=== PATIENT | female | born 1965 | race Caucasian/White ===

== ENCOUNTER → 2024-01-29 | Outpatient (REF) | payer OTHER, SELFPAY | LOC: DHSLP | PROVIDERS: ATTENDING PHYSICIAN Internal Medicine; FAMILY PHYSICIAN Internal Medicine | DX: G47.33 Obstructive sleep apnea (adult) (pediatric) (principal) | CPT/HCPCS: 95800 ==

== ENCOUNTER → 2024-02-22 15:03 | Outpatient (REF) | payer OTHER, SELFPAY | LOC: MRI 3T 15:03 | PROVIDERS: ATTENDING PHYSICIAN Nurse Practitioner; FAMILY PHYSICIAN Internal Medicine | DX: R31.0 Gross hematuria (principal) | CPT/HCPCS: 74183; A9575 ==

== ENCOUNTER → 2024-02-25 14:30 | Outpatient (REF) | payer OTHER, SELFPAY | LOC: MRI 3T 14:30 | PROVIDERS: ATTENDING PHYSICIAN Nurse Practitioner; FAMILY PHYSICIAN Internal Medicine | DX: R31.0 Gross hematuria (principal) | CPT/HCPCS: 72197; A9575 ==

== ENCOUNTER 2024-06-20 11:33 | Emergency (ER) | payer OTHER, SELFPAY ==
[2024-06-20 11:38] VITALS: BP 180/109
[2024-06-20 12:36] LABS: % Basophils 0.3 % (0-2); % Eosinophils 0.3 % (0-6); % Immature Granulocytes 0.4 % (0-0.5); % Lymphocytes 13.4 % (20.5-51.1); % Neutrophils 80.6 % (42.2-75.2); Absolute Immature Granulocytes 0.1 10^3/uL (0-0.05); Absolute Lymphocytes 1.6 10^3/uL (1.2-3.4); Absolute Monocytes 0.6 10^3/uL (0.1-0.6); Absolute Neutrophils 9.4 10^3/uL (1.4-6.5); Hemoglobin 13.5 g/dL (12.0-16.0); Mean Corp Hgb Conc. 33.8 g/dL (33.0-37.0); Mean Corpuscular Hgb 28.7 pg (27.0-31.0); Mean Corpuscular Volume 84.9 fL (81.0-99.0); Mean Platelet Volume 10.5 fL (7.4-10.4); Nucleated Red Blood Cells % 0 %; Platelet Count 230 10^3/uL (130-400); Red Blood Cell Count 4.71 10^6/uL (4.20-5.40); Red Cell Dist. Width 13.9 % (11.5-14.5); White Blood Cell Count 11.6 10^3/uL (4.8-10.8)
[2024-06-20 12:54] LABS: ALT (SGPT) 19 U/L (0-35); AST (SGOT) 28 U/L (14-36); Albumin 4.3 g/dl (3.5-5.0); Alkaline Phosphatase 114 U/L (38-126); Blood Urea Nitrogen 11 mg/dl (7-17); Calcium 9.7 mg/dl (8.4-10.2); Carbon Dioxide 26 mmol/L (22-30); Chloride 105 mmol/L (98-107); Glucose 116 mg/dl (70-99); Potassium 4.1 mmol/L (3.5-5.1); Sodium 137 mmol/L (135-145); Total Bilirubin 0.6 mg/dl (0.2-1.3); Total Protein 7.9 g/dl (6.3-8.2); eGFR > 60.00
--- NOTE | 2024-06-20 13:08 | ED.GENMED ---
History of Present Illness
General
Chief Complaint: Abdominal Pain
Time Seen by Provider: 06/20/24 12:21
History of Present Illness
History of Present Illness:
59-year-old female presents to the emergency department for evaluation of upper abdominal pain radiating to the right upper quadrant beginning last night. Associated with some nausea, vomiting, and constipation. States she has had this pain in the
past associated with indigestion but the pain is much worse. No history of intra-abdominal surgeries. No fevers chills or sweats.
Past History
Past History
ED Past Medical History: Hypercholesterolemia
ED Past Surgical History: Other (Noncontributory)
Social History
Tobacco: Non-smoker
Alcohol: Occasional
Drug: None
Personal:
Living: with family
Employment: Employed
Family History
Family History: Diabetes and CAD
Review of Systems
Review of Systems
Allergies reviewed?: Yes
All Other Systems: ROS reviewed and negative except as documented in HPI and ROS
Phy Exam
Physical Exam
Physical Exam:
GEN: Well appearing, NAD, WDWN
HEENT: Oral mucosa moist, no scleral icterus
Cardiac: Regular rate
Lung: No respiratory distress, no tachypnea
Abdomen: Soft, mildly tender to the epigastrium and right upper quadrant, negative Cardenas sign
MSK: No gross deformity or injuries
Skin: Good color, no pallor or jaundice, no rashes
Neuro: AO x3, moves all extremities freely
Psych: Calm, cooperative
Course
Orders/Labs/Results
Orders:
Orders
06/20/24 11:47
EKG [Electrocardiogram (*1)] Urgent
Reason for Study: Abdominal Pain
EKG- Treatment ONCE
06/20/24 12:21
Complete Blood Count/With Diff Urgent
Comprehensive Metabolic Panel Urgent
Lipase Urgent
Comment: ADDON
06/20/24 12:28
Add On- LAB Urgent
Tests Added?: lipase
06/20/24 13:02
US Abdomen Complete/Upper Urgent
Comment:
Reason For Exam: epigastric pain
Abnormal Lab Results
06/20/24
12:21
WBC 11.6 H 10^3/uL
(4.8-10.8)
MPV 10.5 H fL
(7.4-10.4)
Abs Immat Gran (auto) 0.1 H 10^3/uL
(0-0.05)
Absolute Neuts (auto) 9.4 H 10^3/uL
(1.4-6.5)
Neutrophils % 80.6 H %
(42.2-75.2)
Lymphocytes % 13.4 L %
(20.5-51.1)
Glucose 116 H mg/dl
(70-99)
06/20/24 12:21
06/20/24 12:21
Vital Signs
Initial and Last Documented VS:
Initial Vital Signs
Temp Pulse Resp BP Pulse Ox
99.1 F 91 16 180/109 97
06/20/24 11:38 06/20/24 11:38 06/20/24 11:38 06/20/24 11:38 06/20/24 11:38
Last Documented Vital Signs
Temp Pulse Resp BP Pulse Ox
98.6 F 78 18 123/102 97
06/20/24 14:03 06/20/24 14:03 06/20/24 14:03 06/20/24 14:03 06/20/24 14:03
MDM/Problems Addressed
MDM/Problems Addressed:
Imaging shows no evidence for cholecystitis however cholelithiasis is identified. Will recommend outpatient general surgical follow-up, low-fat diet advised
*Critical Care Note
Total Time (30-74mins, 75-104mins- exclusive of procedures): Not Applicable
ED Attending Note
-
Portions of this chart may have been created with voice recognition software.� Occasional wrong word or��sound alike� substitutions may have occurred due to the inherent limitations of voice recognition software.
Discharge Plan
Departure
Patient Disposition: Home (Routine Discharge)
Date of Disposition: 06/20/24
Time of Disposition: 14:16
Patient with high blood pressure during this ER visit?: No
Discharge Problem:
Cholelithiasis
Instructions: Gallstones (DC), Low-fat diet
Prescriptions:
No Action
fish oil-dha-epa 1 EACH capsule
1,000 mg PO DAILY
cholecalciferol (vitamin D3) [Vitamin D3] 1,000 UNIT tablet
4,000 PO DAILY
acetaminophen [Tylenol Extra Strength] 500 MG tablet
1,000 mg PO Q6HPRN PRN (Reason: pain)
zinc amino acid chelate 50 MG tablet
50 mg PO DAILY
ascorbic acid (vitamin C) [Vitamin C] 500 MG tablet
500 mg PO DAILY
L.acidoph, paracasei,B. lactis 1 EACH capsule
1 ea PO DAILY
lisinopril 10 MG tablet
10 mg PO DAILY
Coq10
100 mg PO DAILY
atorvastatin 20 MG tablet
20 mg PO DAILY
Albuterol Sulfate
2 puff PO DAILY PRN (Reason: sob)
Aspirin :
81 mg PO DAILY
omeprazole 20 MG capsule,delayed release(DR/EC)
20 mg PO DAILY
Referrals:
Jeff Cantu MD [Active] - Call in 1-3 days for appt
Carolyn Poole MD [Family Provider] -
Interventions
Interventions:
*Risk Screen - Suicide Last Done: 06/20/24 11:41
*General Assessment Last Done: 06/20/24 11:41
*Neglect/Abuse Screening Last Done: 06/20/24 11:41
*Nursing Disposition Last Done: 06/20/24 14:42
AH-[id number] Assessment Last Done: 06/20/24 12:21
Discharge Date and Time
Discharge Date/Time: 06/20/24 14:42
Print Language: PERSIAN
[2024-06-20 14:03] VITALS: BP 123/102
[2024-06-20 14:28] LABS: Lipase 146 U/L (23-300)
== END 2024-06-20 14:42 | disposition home or self-care (01) ==
LOC: EMR 11:33
PROVIDERS: EMERGENCY PHYSICIAN Emergency Medicine; FAMILY PHYSICIAN Internal Medicine
DX: K80.20 Calculus of gallbladder without cholecystitis without obstruction (principal); K59.00 Constipation, unspecified; R11.2 Nausea with vomiting, unspecified; E78.00 Pure hypercholesterolemia, unspecified; Z79.82 Long term (current) use of aspirin; Z88.8 Allergy status to other drugs, medicaments and biological substances
CPT/HCPCS: 99284; 76700; 80053; 83690; 85025; 93005

== ENCOUNTER 2024-08-01 06:06 | Day surgery (SDC) | payer OTHER, SELFPAY ==
[2024-08-01] MEDS: TYLENOL 1000 MG PO (06:41)
[2024-08-01] MEDS: NORMOSOL-R/PLASMALYTE-A 1000 IV (07:05)
== END 2024-08-01 11:20 | disposition home or self-care (01) ==
LOC: SDS 06:06
PROVIDERS: ATTENDING PHYSICIAN Surgery; FAMILY PHYSICIAN Internal Medicine
DX: K80.10 Calculus of gallbladder with chronic cholecystitis without obstruction (principal); E66.01 Morbid (severe) obesity due to excess calories; K66.0 Peritoneal adhesions (postprocedural) (postinfection); Z68.37 Body mass index [BMI] 37.0-37.9, adult
CPT/HCPCS: 47563; 88304; 74300; 76000; A4300

== ENCOUNTER → 2024-08-20 15:49 | Outpatient (REF) | payer OTHER, SELFPAY | LOC: HWRAD 15:49 | PROVIDERS: ATTENDING PHYSICIAN Internal Medicine | DX: Z87.891 Personal history of nicotine dependence (principal) | CPT/HCPCS: 71271 ==

== ENCOUNTER → 2024-11-20 15:52 | Outpatient (REF) | payer OTHER, SELFPAY | LOC: WDC 15:52 | PROVIDERS: ATTENDING PHYSICIAN Internal Medicine | DX: R91.8 Other nonspecific abnormal finding of lung field (principal); Z12.31 Encounter for screening mammogram for malignant neoplasm of breast | CPT/HCPCS: 71250; 77063; 77067 ==

== ENCOUNTER → 2024-11-26 09:47 | Outpatient (REF) | payer OTHER, SELFPAY | LOC: WDC 09:47 | PROVIDERS: ATTENDING PHYSICIAN Internal Medicine | DX: R92.8 Other abnormal and inconclusive findings on diagnostic imaging of breast (principal) | CPT/HCPCS: 76642 ==

== ENCOUNTER 2024-12-04 06:14 | Emergency (ER) | payer OTHER, SELFPAY ==
[2024-12-04 06:16] VITALS: BP 184/106
[2024-12-04 06:27] LABS: Glucose - Point of Care 156 mg/dl (70-99)
[2024-12-04 06:57] LABS: % Basophils 0.4 % (0-2); % Eosinophils 2.4 % (0-6); % Immature Granulocytes 0.6 % (0-0.5); % Monocytes 4.5 % (1.7-9.3); % Neutrophils 69.1 % (42.2-75.2); Absolute Eosinophils 0.1 10^3/uL (0-0.7); Absolute Lymphocytes 1.2 10^3/uL (1.2-3.4); Absolute Monocytes 0.2 10^3/uL (0.1-0.6); Absolute Neutrophils 3.7 10^3/uL (1.4-6.5); Hematocrit 38.4 % (37.0-47.0); Hemoglobin 12.5 g/dL (12.0-16.0); Mean Corp Hgb Conc. 32.6 g/dL (33.0-37.0); Mean Corpuscular Hgb 27.9 pg (27.0-31.0); Mean Corpuscular Volume 85.7 fL (81.0-99.0); Mean Platelet Volume 10.6 fL (7.4-10.4); Nucleated Red Blood Cells % 0 %; Platelet Count 194 10^3/uL (130-400); Red Blood Cell Count 4.48 10^6/uL (4.20-5.40); Red Cell Dist. Width 13.7 % (11.5-14.5); White Blood Cell Count 5.4 10^3/uL (4.8-10.8)
[2024-12-04 07:09] LABS: ALT (SGPT) 20 U/L (0-35); AST (SGOT) 28 U/L (14-36); Albumin 4.2 g/dl (3.5-5.0); Alkaline Phosphatase 111 U/L (38-126); Blood Urea Nitrogen 19 mg/dl (7-17); Calcium 8.8 mg/dl (8.4-10.2); Carbon Dioxide 25 mmol/L (22-30); Chloride 105 mmol/L (98-107); Glucose 136 mg/dl (70-99); Potassium 4.5 mmol/L (3.5-5.1); Sodium 138 mmol/L (135-145); Total Bilirubin 0.5 mg/dl (0.2-1.3); Total Protein 7.8 g/dl (6.3-8.2); eGFR > 60.00
[2024-12-04 07:11] VITALS: BP 157/87
[2024-12-04 07:19] LABS: Troponin I 0.019 ng/ml
[2024-12-04] MEDS: LOW STRENGTH ASPIRIN 324 MG PO (07:34)
[2024-12-04 07:37] VITALS: BMI 39.5
--- NOTE | 2024-12-04 07:41 | ED.GENMED ---
History of Present Illness
<Carmita Nicolas PA-C - Last Filed: 12/04/24 14:57>
General
Chief Complaint: Blood Pressure Problem
Source: patient
Exam Limitations: none
Time Seen by Provider: 12/04/24 07:07
Nursing documentation reviewed up to this point in time: agreed with
History of Present Illness
History of Present Illness:
59 y/o F with h/o HTN, hld, sleep apnea, former smokker
here with sxs that began around 3 am
woke up because c pap was bothering her
she started feeling room spinning dizziness and some blurry vision last ing about 20 sec
she sat up and it clearedup but that prompted her to check bp which was 179/109
she took her morning dose of lisinopril (usually takes it at 5 am)
and then waited a little and started feeling better
took a shower and came back to bed, no trouble walking
checked bp and it was 180/100
she decided to come in
on the way here started having L upper back 'burning' discomfort, mild
and then while in the waiting room the burning presented in the front of the chest
not pleuritic
no cp awith exertion
no diaphoresis, nausea, vomiting, syncope, leg swelling neck pain, headache
had carotid US in 2022 which was clear
Past History
<Carmita Nicolas PA-C - Last Filed: 12/04/24 14:57>
Past History
ED Past Medical History: Hypercholesterolemia
ED Past Surgical History: Other (Noncontributory)
Social History
Tobacco: Non-smoker
Alcohol: Occasional
Drug: None
Personal:
Living: with family
Employment: Employed
Family History
Family History: Diabetes and CAD
Review of Systems
<JASPREET Bassett Last Filed: 12/04/24 14:57>
Review of Systems
Allergies reviewed?: Yes
All Other Systems: Not applicable
Phy Exam
<Carmita Nicolas PA-C - Last Filed: 12/04/24 14:57>
Physical Exam
Physical Exam:
GENERAL: Alert , in no apparent distress
EYE: pupils equal and reactive
NECK: Supple
ENT: o/p clr, mmm.
CARDIAC: Regular rate and rhythm .
LUNGS: Clear breath sounds bilaterally, no acute respiratory distress, no wheezes/rales/rhonchi
ABDOMEN: Soft, without focal tenderness, no r/g, no cvat, normal bowel sounds
NEUROLOGICAL: Alert and oriented, no focal neuro deficits
SKIN: Warm and dry, skin intact.
MUSCULOSKELETAL: No edema, well perfused. neg myrna's sign
PSYCH: Normal and appropriate interaction.
Scores
<Carmita Nicolas PA-C - Last Filed: 12/04/24 14:57>
PE Wells Score
Symptoms of DVT: No
No alternative diagnosis better explains the illness: No
Tachycardia with pulse > 100: No
Immobilization (>=3 days) or surgery within previous 4 weeks: No
Prior history of DVT or pulmonary embolism: No
Presence of hemoptysis: No
Presence of malignancy: No
Pulmonary Embolism Risk Score: 0
Probability of PE: Pt is low risk
PERC Rule Criteria
Age <50 years: No
HR <100 bpm: Yes
Room air oxygen sat >94%: Yes
History of DVT or PE: No
Recent trauma or surgery: No
Hemoptysis: No
Exogenous estrogen: No
Clinical signs suggestive of DVT: No
: No
Considered low risk for PE: Yes
PERC Score: 1
PE can be excluded by PERC: No
Course
<Carmita Nicolas PA-C - Last Filed: 12/04/24 14:57>
Orders/Labs/Results
Orders:
Orders
12/04/24 06:22
EKG [Electrocardiogram (*1)] Urgent
Reason for Study: Hypertension, Benign
EKG- Treatment ONCE
12/04/24 06:25
Accucheck [Bedside Glucose Monitoring] As Directed
Frequency: Other frequency
Other frequency: once
12/04/24 06:44
Complete Blood Count/With Diff Urgent
Comprehensive Metabolic Panel Urgent
NT-proBNP Urgent
Comment: ADD ON
Troponin I Urgent
12/04/24 07:22
Add On- LAB Urgent
Tests Added?: BNP
CR Chest - 2 Views Urgent
Comment:
Reason For Exam: chest pain
12/04/24 07:23
EKG- Treatment ONCE
Aspirin Chewable [Low Strength Aspirin] 324 mg PO NOW STA
12/04/24 07:36
Mag Hydrox/Al Hydrox/Simeth [Maalox] 30 ml PO NOW STA
12/04/24 10:00
Electrocardiogram (*1) Urgent
Reason for Study: Chest Pain
12/04/24 10:36
Troponin I Urgent
Abnormal Lab Results
12/04/24 12/04/24
06:26 06:44
MCHC 32.6 L g/dL
(33.0-37.0)
MPV 10.6 H fL
(7.4-10.4)
Immature Gran % 0.6 H %
(0-0.5)
BUN 19 H mg/dl
(7-17)
Glucose 136 H mg/dl
(70-99)
POC Glucose 156 H mg/dl
(70-99)
12/04/24 06:44
12/04/24 06:44
Vital Signs
Initial and Last Documented VS:
Initial Vital Signs
Temp Pulse Resp BP Pulse Ox
36.7 C 92 18 184/106 100
12/04/24 06:16 12/04/24 06:16 12/04/24 06:16 12/04/24 06:16 12/04/24 06:16
Last Documented Vital Signs
Temp Pulse Resp BP Pulse Ox
36.7 C 66 14 137/98 97
12/04/24 06:16 12/04/24 11:45 12/04/24 11:45 12/04/24 10:00 12/04/24 11:30
<Daniel Gonsalves, DO - Last Filed: 12/04/24 11:11>
Orders/Labs/Results
Orders:
Orders
12/04/24 06:22
EKG [Electrocardiogram (*1)] Urgent
Reason for Study: Hypertension, Benign
EKG- Treatment ONCE
12/04/24 06:25
Accucheck [Bedside Glucose Monitoring] As Directed
Frequency: Other frequency
Other frequency: once
12/04/24 06:44
Complete Blood Count/With Diff Urgent
Comprehensive Metabolic Panel Urgent
NT-proBNP Urgent
Comment: ADD ON
Troponin I Urgent
12/04/24 07:22
Add On- LAB Urgent
Tests Added?: BNP
CR Chest - 2 Views Urgent
Comment:
Reason For Exam: chest pain
12/04/24 07:23
EKG- Treatment ONCE
Aspirin Chewable [Low Strength Aspirin] 324 mg PO NOW STA
12/04/24 07:36
Mag Hydrox/Al Hydrox/Simeth [Maalox] 30 ml PO NOW STA
12/04/24 10:00
Electrocardiogram (*1) Urgent
Reason for Study: Chest Pain
12/04/24 10:36
Troponin I Urgent
Abnormal Lab Results
12/04/24 12/04/24
06:26 06:44
MCHC 32.6 L g/dL
(33.0-37.0)
MPV 10.6 H fL
(7.4-10.4)
Immature Gran % 0.6 H %
(0-0.5)
BUN 19 H mg/dl
(7-17)
Glucose 136 H mg/dl
(70-99)
POC Glucose 156 H mg/dl
(70-99)
12/04/24 06:44
12/04/24 06:44
Vital Signs
Initial and Last Documented VS:
Initial Vital Signs
Temp Pulse Resp BP Pulse Ox
36.7 C 92 18 184/106 100
12/04/24 06:16 12/04/24 06:16 12/04/24 06:16 12/04/24 06:16 12/04/24 06:16
Last Documented Vital Signs
Temp Pulse Resp BP Pulse Ox
36.7 C 66 14 137/98 97
12/04/24 06:16 12/04/24 11:45 12/04/24 11:45 12/04/24 10:00 12/04/24 11:30
Jackielt;Carmita Nicolas PA-C - Last Filed: 12/04/24 14:57>
MDM/Problems Addressed
Differential Diagnosis Includes:
symptatomci htn, acs, vertigo, near syncope, chf
MDM/Problems Addressed:
pt is a 59 y/o F with h/o HTN ,HLD
felt lightheaded/dizzy visino changes briefly at 3 am
checked bp and it was 180/100
normally 120/80
took her lisinopril, still had some hypertnesion but started to feel better
took a shower and then noticed some pain in her upper back that felt like burning
no syncope, sob, fever, cough, headache, neckpain
vision changes are resolved
dizziness is not really present
she had URI last week and cleared up
ekg t wave inv [id number] neg
initially bp elevated 180/100
but improved nicely without meds
first trop 0.019
observed in ED
cxr indep reviewed, clear
bnp nomral
2nd trop < 0.012
seen by ed attending
agree with dispo
very low risk for PE and no sob/tachycardia
return precautions
will put in chest pain hot line;
<Carmita Nicolas PA-C - Last Filed: 12/04/24 14:57>
*Critical Care Note
Total Time (30-74mins, 75-104mins- exclusive of procedures): Not Applicable
ED Attending Note
<Carmita Nicolas PA-C - Last Filed: 12/04/24 14:57>
-
Portions of this chart may have been created with voice recognition software.� Occasional wrong word or��sound alike� substitutions may have occurred due to the inherent limitations of voice recognition software.
<aDniel Gonsalves DO - Last Filed: 12/04/24 11:11>
ED Attending Note
Patient seen and examined by attending physician: Yes
I performed the substantive portion of visit, reviewed & personally made and approve the management plan that is documented in note by myself or SHWETHA.: Yes
ED Attending Note:
I evaluated the patient at bedside. Initial troponin EKG relatively unremarkable. The initial EKG showed a questionable abnormality in V2 however given the QRS, this does not appear to be anything significant. Repeat EKG shows upright T waves in
V2. She has not had any chest discomfort other than some burning earlier this morning. BP has spontaneously improved. She did take her lisinopril around 330 this morning.
Discharge Plan
Departure
Patient Disposition: Home (Routine Discharge)
Date of Disposition: 12/04/24
Time of Disposition: 11:41
Patient with high blood pressure during this ER visit?: No
Condition: Fair
Covid-19: Not Applicable
Discharge Problem:
Transient hypertension, Dizziness, Chest pain
Instructions: High Blood Pressure (DC), Chest Pain DCA Follow Up
Prescriptions:
New
meclizine 25 mg tablet
25 mg PO BID PRN (Reason: dizziness) Qty: 10 0RF
No Action
lisinopril 10 MG tablet
10 mg PO DAILY
famotidine 40 mg Tablet
40 mg PO HS
omeprazole 40 mg Capsule,Delayed Release(Dr/Ec)
40 mg PO DAILY
naproxen sodium [Aleve] 220 mg Tablet
220 - 440 mg PO PRN PRN (Reason: pain)
estradiol 0.01 % (0.1 mg/gram) Cream
1 appful VAGINAL MOTH
albuterol sulfate 90 mcg/actuation Hfa Aerosol Inhaler
1 inh inhalation ONCE PRN (Reason: SOB)
magnesium 200 mg Tablet
200 mg PO HS
rosuvastatin 10 mg Tablet
10 mg PO HS
acetaminophen [acetaminophen] 325 mg tablet
650 mg PO Q4HPRN PRN (Reason: mild pain) Qty: 1 0RF
oxycodone 5 mg tablet
5 mg PO Q4HPRN PRN (Reason: breakthrough/severe pain) Qty: 10 0RF
amoxicillin-pot clavulanate 875-125 mg tablet
1 tab PO Q12 4 Days Qty: 8 0RF
Referrals:
Carolyn Poole MD [Family Provider] - Follow up in 2-3 days
Activity Restrictions/Additional Instructions:
YOUR WORK UP HERE IS REASSURING FOR RULING OUT EMERGENCIES AND YOUR BLOOD PRESSURE IMPROVED
YOU SHOULD BE RECEIVING A PHONE CALL FROM CARDIOLOGY IN THE NEXT FEW DAYS TO SCHEDULE FOLLOW UP
DRINK FLUIDS, STAY HYDRATED
RETURN FOR: WORSENING DIZZINESS, VOMITING, WORSE CHEST PAIN, SHORTNESS OF BREATH, FEVER, PASSING OUT OR ANY CONCERNS
YOU CAN TRY MECLINZINE 25 MG 2-3 TIMES A DAY FOR 1-2 DAYS NEEDED FOR DIZZINESS, IN CASE THIS IS VERTIGO FROM YOUR RECENT CONGESTION
Interventions
Interventions:
*Risk Screen - Suicide Last Done: 12/04/24 06:16
*General Assessment Last Done: 12/04/24 06:16
*Neglect/Abuse Screening Last Done: 12/04/24 06:16
ED- Fall Risk Assessment Last Done: 12/04/24 07:38
*ED COVID-19 Vaccine History Last Done: 12/04/24 06:16
*Nursing Disposition Last Done: 12/04/24 11:45
ED- Cardiac Assessment Last Done: 12/04/24 07:38
ED- Neurological Assessment Last Done: 12/04/24 07:38
ED- Pulmonary Assessment Last Done: 12/04/24 07:38
Discharge Date and Time
Discharge Date/Time: 12/04/24 11:45
Print Language: DJIBOUTIAN
[2024-12-04] MEDS: MAALOX 30 ML PO (08:36)
[2024-12-04 08:38] VITALS: BP 140/93
[2024-12-04 08:43] LABS: NT-proBNP 82.7 pg/ml
[2024-12-04 09:00] VITALS: BP 130/80
[2024-12-04 10:00] VITALS: BP 137/98
[2024-12-04 11:20] LABS: Troponin I < 0.012 ng/ml
== END 2024-12-04 11:45 | disposition home or self-care (01) ==
LOC: EMR 06:14
PROVIDERS: Emergency Medicine; Physician Assistant; EMERGENCY PHYSICIAN Emergency Medicine; FAMILY PHYSICIAN Internal Medicine
DX: I10 Essential (primary) hypertension (principal); R42 Dizziness and giddiness; R07.89 Other chest pain; E78.00 Pure hypercholesterolemia, unspecified; G47.30 Sleep apnea, unspecified; Z82.49 Family history of ischemic heart disease and other diseases of the circulatory system; Z83.3 Family history of diabetes mellitus
CPT/HCPCS: 99283; 71046; 80053; 82962; 83880; 84484; 85025; 93005

== ENCOUNTER → 2025-02-03 15:38 | Outpatient (REF) | payer OTHER, SELFPAY | LOC: RCS 15:38 | PROVIDERS: ATTENDING PHYSICIAN Internal Medicine Cardiovascular Disease; FAMILY PHYSICIAN Internal Medicine | DX: J43.2 Centrilobular emphysema (principal); R06.09 Other forms of dyspnea | CPT/HCPCS: 93306 ==

== ENCOUNTER 2025-03-03 06:20 | Day surgery (SDC) | payer OTHER, SELFPAY ==
[2025-02-23 08:55] LABS: % Basophils 0.8 % (0-2); % Eosinophils 1.8 % (0-6); % Immature Granulocytes 0.3 % (0-0.5); % Lymphocytes 26.8 % (20.5-51.1); % Monocytes 5.5 % (1.7-9.3); % Neutrophils 64.8 % (42.2-75.2); Absolute Basophils 0.1 10^3/uL (0-0.2); Absolute Eosinophils 0.1 10^3/uL (0-0.7); Absolute Lymphocytes 2.1 10^3/uL (1.2-3.4); Absolute Monocytes 0.4 10^3/uL (0.1-0.6); Hematocrit 42.5 % (37.0-47.0); Hemoglobin 13.6 g/dL (12.0-16.0); Mean Corpuscular Hgb 27.7 pg (27.0-31.0); Mean Corpuscular Volume 86.6 fL (81.0-99.0); Mean Platelet Volume 11.1 fL (7.4-10.4); Nucleated Red Blood Cells % 0 %; Platelet Count 225 10^3/uL (130-400); Red Blood Cell Count 4.91 10^6/uL (4.20-5.40); Red Cell Dist. Width 14.9 % (11.5-14.5); White Blood Cell Count 7.8 10^3/uL (4.8-10.8)
[2025-02-23 09:38] LABS: Blood Urea Nitrogen 26 mg/dl (7-17); Calcium 9.9 mg/dl (8.4-10.2); Carbon Dioxide 25 mmol/L (22-30); Chloride 104 mmol/L (98-107); Glucose 99 mg/dl (70-99); Potassium 5.2 mmol/L (3.5-5.1); Sodium 139 mmol/L (135-145); eGFR > 60.00
[2025-02-23 13:27] VITALS: BMI 34.5
[2025-03-03] VITALS (8 sets, daily range): BP systolic 101–122; BP diastolic 66–80; BMI 34.5
[2025-03-03] MEDS: TYLENOL 1000 MG PO (07:28)
[2025-03-03] MEDS: NORMOSOL-R/PLASMALYTE-A 1000 IV (07:56)
== END 2025-03-03 11:00 | disposition home or self-care (01) ==
LOC: SDS 06:20
PROVIDERS: ATTENDING PHYSICIAN Obstetrics & Gynecology; FAMILY PHYSICIAN Internal Medicine
DX: N84.0 Polyp of corpus uteri (principal); N95.0 Postmenopausal bleeding
CPT/HCPCS: 58558; 88305; 36415; 80048; 85025; 86850; 86900; 86901

== ENCOUNTER → 2025-05-21 06:46 | Outpatient (REF) | payer OTHER, SELFPAY | LOC: RAD 06:46 | PROVIDERS: ATTENDING PHYSICIAN Physician Assistant; FAMILY PHYSICIAN Internal Medicine | DX: R91.8 Other nonspecific abnormal finding of lung field (principal) | CPT/HCPCS: 71250 ==

== ENCOUNTER → 2025-08-06 13:47 | Outpatient (REF) | payer OTHER, SELFPAY | LOC: DHSLP 13:47 | PROVIDERS: ATTENDING PHYSICIAN Internal Medicine; FAMILY PHYSICIAN Internal Medicine | DX: G47.33 Obstructive sleep apnea (adult) (pediatric) (principal); R06.83 Snoring | CPT/HCPCS: 95800 ==

== ENCOUNTER → 2025-10-23 06:52 | Outpatient (REF) | payer OTHER, SELFPAY | LOC: RAD 06:52 | PROVIDERS: ATTENDING PHYSICIAN Physician Assistant; FAMILY PHYSICIAN Internal Medicine | DX: R91.1 Solitary pulmonary nodule (principal) | CPT/HCPCS: 71250 ==